=== PATIENT | female | born 1995 | race Caucasian/White ===

== ENCOUNTER 2022-10-31 07:10 | Emergency (ER) | payer OTHER ==
[~2022-10-31] VITALS: Ht 157.5 cm; Wt 52.2 kg
--- NOTE | 2022-10-31 07:36 | NUR ---
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 denies any discomfort
--- NOTE | 2022-10-31 07:42 | NUR ---
AT BEDSIDE FOR EVAL
--- NOTE | 2022-10-31 07:44 | NUR ---
RESTING COMFORTABLY , NO SIGNS AND SYMPTOMS OF DISTRESS
--- NOTE | 2022-10-31 08:07 | NUR ---
Patient discharged to home in stable condition. Written and verbal after care instructions given. Patient verbalizes understanding of instruction.
[2022-10-31 08:15] VITALS: BP 103/82
== END 2022-10-31 08:33 | disposition home or self-care (01) ==
LOC: ER 07:13
DX: T49.0X1A Poisoning by local antifungal, anti-infective and anti-inflammatory drugs, accidental (unintentional), initial encounter (principal); Z91.040 Latex allergy status; Y92.89 Other specified places as the place of occurrence of the external cause